=== PATIENT | male | born 1970 | race Caucasian/White ===

== ENCOUNTER 2017-03-08 07:53 | Inpatient (IN) | payer OTHER ==
[2017-03-08] VITALS (16 sets, daily range): BP systolic 106–131; BP diastolic 66–81
[~2017-03-08] VITALS: Ht 172.7 cm; Wt 103.0 kg
[~2017-03-08 07:53] MED LIST: FLO0.4C PO; HYDR-569 PO; ONDA4TAB6 PO
[2017-03-08 08:22] LABS: BASOPHILS % (AUTO) 0 % (0-1); EOSINOPHILS # (AUTO) 0.2 X10'3 (0-0.9); EOSINOPHILS % (AUTO) 1.5 % (0-6); HEMATOCRIT 46.1 % (42.0-52.0); HEMOGLOBIN 15.7 g/dl (14.0-17.9); LYMPHOCYTES # (AUTO) 0.7 X10'3 (1.1-4.8); LYMPHOCYTES % (AUTO) 4.7 % (21-51); MEAN CORPUSCULAR HEMOGLOBIN 28.5 PG (27.0-31.0); MEAN CORPUSCULAR VOLUME 83.8 FL (78-98); MONOCYTES # (AUTO) 0.3 X10'3 (0-0.9); MONOCYTES % (AUTO) 2.2 % (2-12); NEUTROPHILS # (AUTO) 12.7 X10'3 (1.8-7.7); NEUTROPHILS % (AUTO) 91.6 % (42-75); PLATELET COUNT 145 X10'3 (140-440); WHITE BLOOD COUNT 13.9 X10'3 (4.5-11.0)
[2017-03-08 08:30] LABS: INR 1.2 INR
[2017-03-08] MEDS ORDERED: normal saline 1000ML IV soln IVB ONE (08:35)
[2017-03-08] MEDS ORDERED: HYDROmorphone 1 mg/ml syringe IV ONE ×2 (08:35→10:45)
[2017-03-08] MEDS ORDERED: ondansetron/PF 4mg/2ml inj IV ONE (08:35)
[2017-03-08 08:37] LABS: ALANINE AMINOTRANSFERASE 53 U/L (12-78); ALBUMIN 4.6 G/DL (3.4-5.0); ALBUMIN/GLOBULIN RATIO 1.4 (1.1-1.5); ALKALINE PHOSPHATASE 72 IU/L (46-116); AMYLASE 47 U/L (25-115); ANION GAP 12 (8-16); ASPARTATE AMINO TRANSFERASE 20 U/L (10-37); BILIRUBIN,TOTAL 1.2 MG/DL (0.1-1.0); BLOOD UREA NITROGEN 13 MG/DL (7-18); BUN/CREATININE RATIO 9.3 (5.4-32.0); CALCIUM 8.8 MG/DL (8.5-10.1); CHLORIDE 102 MMOL/L (99-107); GLUCOSE 180 MG/DL (70-104); LIPASE 141 U/L (73-393); POTASSIUM 3.7 MMOL/L (3.5-5.1); SODIUM 140 MMOL/L (135-145); TOTAL PROTEIN 7.8 G/DL (6.4-8.2); eGFR 55 ML/MIN
[2017-03-08] MEDS ORDERED: HYDROmorphone inj. 0.5 MG/0.5 ML DISP.SYRIN ONE ×2 (09:07→10:58)
[2017-03-08 10:49] LABS: CLARITY,URINE CLEAR (Clear); GLUCOSE, URINE NEGATIVE (Neg); KETONES,URINE 40 mg/dl (Neg); LEUKOCYTE ESTERASE ,URINE NEGATIVE (Neg); NITRITES, URINE NEGATIVE (Neg); OCCULT BLOOD,URINE SMALL (Neg); PROTEIN,URINE 30 mg/dl (Neg)
[2017-03-08] MEDS ORDERED: cefazolin 1gm/NS 100mL 100 ML IV ONE (10:50)
[2017-03-08 10:51] LABS: UA COLLECTION TYPE CLN CATCH MIDSTREAM
[2017-03-08 10:52] LABS: COLOR,URINE Dark Yellow (Yellow)
[2017-03-08 11:09] LABS: BACTERIA,URINE NONE SEEN /HPF (Neg); SQUAMOUS EPITHELIAL CELL,UR FEW /LPF (FEW); WBC,URINE 0-4 /HPF (0-4)
[2017-03-08 11:10] LABS: MUCUS STRANDS MANY /LPF (Neg)
[2017-03-08] MEDS ORDERED: ondansetron/PF 4mg/2ml inj IV PRN ×3 (13:05→16:35)
[2017-03-08] MEDS: sodium chloride 0.45% 1,000 ML IV SCH (13:14)
[2017-03-08] MEDS: morphine 2 MG/ML inj. syringe IV PRN (13:30)
[2017-03-08] MEDS ORDERED: BUPIVAcaine/PF 2.5 mg/ml (0.25%) 30ml vial ONE (15:24)
[2017-03-08] MEDS ORDERED: midazolam 2 mg/2 ml injection ONE (15:28)
[2017-03-08] MEDS ORDERED: fentaNYL/PF 50MCG/1 ML 2ML syringe ONE (15:28)
[2017-03-08 15:32] LABS: HEMOGLOBIN A1C 5.5 % (4.5-6.2)
[2017-03-08] MEDS ORDERED: neostigmine methylsulfate 1 MG/ML 10ml vial ONE (15:45)
[2017-03-08] MEDS ORDERED: sevoflurane 250ml liquid IH ONE (15:45)
[2017-03-08] MEDS ORDERED: hydrALAZINE 20mg/ml inj. IV PRN (16:15)
[2017-03-08] MEDS ORDERED: labetalol 20mg/4ml (5mg/ml) syringe IV PRN (16:15)
[2017-03-08] MEDS ORDERED: meperidine/PF 25mg/ml syringe IV ONE (16:15)
[2017-03-08] MEDS ORDERED: ringers solution, lacted 1,000 ML IV ONE (16:15)
[2017-03-08] MEDS ORDERED: morphine 2 MG/ML inj. syringe IV PRN ×2 (16:15)
[2017-03-08] MEDS ORDERED: meperidine/PF 25mg/ml syringe IV PRN ×2 (16:15)
[2017-03-08] MEDS ORDERED: LIDOcaine 1%/PF (10mg/ml) 5ml vial ONE (16:19)
[2017-03-08] MEDS ORDERED: propofol inj 20 ML IV ONE (16:19)
[2017-03-08] MEDS ORDERED: rocuronium 10mg/ml inj IV ONE (16:19)
[2017-03-08] MEDS ORDERED: dexamethasone sod phosphate 4mg/ml inj. ONE (16:19)
[2017-03-08] MEDS ORDERED: ondansetron/PF 4mg/2ml inj ONE (16:19)
[2017-03-08] MEDS ORDERED: glycopyrrolate 0.2mg/ml inj ONE (16:20)
[2017-03-08] MEDS: HYDROmorphone inj. 0.5 MG/0.5 ML DISP.SYRIN IV PRN (17:48)
[2017-03-08] MEDS: lactobacillus rhamnosus 10,000 MMU CELLS/CAPSULE PO SCH (18:35)
[2017-03-08] MEDS ORDERED: NO HOME MEDS (18:46)
[2017-03-08] MEDS: piperacillin/tazo 3.375gm/50ml 50 ML IV SCH (18:49)
[2017-03-08] MEDS ORDERED: piperacillin/tazo 3.375gm/50ml 50 ML IV SCH (20:00)
[2017-03-09] VITALS: BP 128/80
[2017-03-09] MEDS: piperacillin/tazo 3.375gm/50ml 50 ML IV SCH ×3 (00:12→16:33)
[2017-03-09] MEDS: HYDROmorphone inj. 0.5 MG/0.5 ML DISP.SYRIN IV PRN (01:26)
[2017-03-09] MEDS: sodium chloride 0.45% 1,000 ML IV SCH ×2 (01:30→14:48)
[2017-03-09 05:20] LABS: BASOPHILS % (AUTO) 0 % (0-1); EOSINOPHILS # (AUTO) 0.1 X10'3 (0-0.9); HEMATOCRIT 38.3 % (42.0-52.0); HEMOGLOBIN 13.5 g/dl (14.0-17.9); LYMPHOCYTES # (AUTO) 0.6 X10'3 (1.1-4.8); LYMPHOCYTES % (AUTO) 4.9 % (21-51); MEAN CORPUSCULAR HEMOGLOBIN 29.3 PG (27.0-31.0); MEAN CORPUSCULAR HGB CONC 35.3 % (33.0-36.5); MEAN CORPUSCULAR VOLUME 82.9 FL (78-98); MEAN PLATELET VOLUME 8.5 FL (7.4-10.4); MONOCYTES # (AUTO) 0.8 X10'3 (0-0.9); MONOCYTES % (AUTO) 6.5 % (2-12); NEUTROPHILS # (AUTO) 10.4 X10'3 (1.8-7.7); NEUTROPHILS % (AUTO) 87.6 % (42-75); PLATELET COUNT 138 X10'3 (140-440); RED BLOOD COUNT 4.62 X10'6 (4.70-6.10); RED CELL DISTRIBUTION WIDTH 13.8 % (11.5-14.5); WHITE BLOOD COUNT 11.9 X10'3 (4.5-11.0)
[2017-03-09 05:53] LABS: ALANINE AMINOTRANSFERASE 49 U/L (12-78); ALBUMIN 3.3 G/DL (3.4-5.0); ALKALINE PHOSPHATASE 55 IU/L (46-116); ANION GAP 9 (8-16); ASPARTATE AMINO TRANSFERASE 21 U/L (10-37); BLOOD UREA NITROGEN 16 MG/DL (7-18); BUN/CREATININE RATIO 13.3 (5.4-32.0); CALCIUM 8.4 MG/DL (8.5-10.1); CHLORIDE 105 MMOL/L (99-107); GLUCOSE 131 MG/DL (70-104); POTASSIUM 4.1 MMOL/L (3.5-5.1); SODIUM 140 MMOL/L (135-145); TOTAL PROTEIN 6.5 G/DL (6.4-8.2); eGFR 66 ML/MIN
[2017-03-09] MEDS: HYDROcodone/acetaminophen 10/325mg tab PO PRN ×2 (06:34→16:33)
[2017-03-09 07:53] VITALS: BP 136/67
[2017-03-09] MEDS: lactobacillus rhamnosus 10,000 MMU CELLS/CAPSULE PO SCH ×2 (07:56→17:02)
[2017-03-09 11:52] VITALS: BP 121/75
[2017-03-09] MEDS: morphine 2 MG/ML inj. syringe IV PRN (14:42)
[2017-03-09 19:30] VITALS: BP 124/77
[2017-03-09] MEDS: diatr meglu/diatrizoate 30ml oral sol.-(3 dose) bottle PO SCH (21:01)
[2017-03-09 23:30] VITALS: BP 138/74
[2017-03-10] MEDS: piperacillin/tazo 3.375gm/50ml 50 ML IV SCH ×2 (00:13→07:00)
[2017-03-10] MEDS: HYDROcodone/acetaminophen 10/325mg tab PO PRN ×2 (00:18→13:31)
[2017-03-10] MEDS: sodium chloride 0.45% 1,000 ML IV SCH ×2 (05:01→06:58)
[2017-03-10 05:09] LABS: BASOPHILS % (AUTO) 0.3 % (0-1); EOSINOPHILS # (AUTO) 0.2 X10'3 (0-0.9); EOSINOPHILS % (AUTO) 2.8 % (0-6); HEMATOCRIT 36.9 % (42.0-52.0); HEMOGLOBIN 12.6 g/dl (14.0-17.9); LYMPHOCYTES % (AUTO) 23.3 % (21-51); MEAN CORPUSCULAR HEMOGLOBIN 29.1 PG (27.0-31.0); MEAN CORPUSCULAR HGB CONC 34.1 % (33.0-36.5); MEAN CORPUSCULAR VOLUME 85.2 FL (78-98); MEAN PLATELET VOLUME 8.9 FL (7.4-10.4); MONOCYTES # (AUTO) 1.1 X10'3 (0-0.9); MONOCYTES % (AUTO) 13.3 % (2-12); NEUTROPHILS # (AUTO) 5.2 X10'3 (1.8-7.7); NEUTROPHILS % (AUTO) 60.3 % (42-75); PLATELET COUNT 131 X10'3 (140-440); RED BLOOD COUNT 4.33 X10'6 (4.70-6.10); RED CELL DISTRIBUTION WIDTH 13.9 % (11.5-14.5); WHITE BLOOD COUNT 8.6 X10'3 (4.5-11.0)
[2017-03-10 05:25] LABS: ALANINE AMINOTRANSFERASE 42 U/L (12-78); ALKALINE PHOSPHATASE 49 IU/L (46-116); ANION GAP 6 (8-16); ASPARTATE AMINO TRANSFERASE 18 U/L (10-37); BILIRUBIN,TOTAL 0.4 MG/DL (0.1-1.0); BLOOD UREA NITROGEN 17 MG/DL (7-18); BUN/CREATININE RATIO 14.2 (5.4-32.0); CALCIUM 8.2 MG/DL (8.5-10.1); CHLORIDE 109 MMOL/L (99-107); GLUCOSE 116 MG/DL (70-104); POTASSIUM 3.9 MMOL/L (3.5-5.1); SODIUM 143 MMOL/L (135-145); TOTAL CARBON DIOXIDE 27.9 MMOL/L (24-32); TOTAL PROTEIN 5.9 G/DL (6.4-8.2); eGFR 66 ML/MIN
[2017-03-10] MEDS: lactobacillus rhamnosus 10,000 MMU CELLS/CAPSULE PO SCH (06:54)
[2017-03-10] MEDS: diatr meglu/diatrizoate 30ml oral sol.-(3 dose) bottle PO SCH ×2 (06:57→09:44)
[2017-03-10 07:32] VITALS: BP 129/71
[2017-03-10] MEDS ORDERED: iohexol 300mg/ml 100ml inj. ONE (09:08)
[2017-03-10 11:30] VITALS: BP 143/90
[2017-03-10] MEDS ORDERED: HYDR-565 PO (15:11)
== END 2017-03-10 16:07 | disposition home or self-care (01) | DRG 854 ==
LOC: ER 07:53 → ED HOLD 13:01 → PACU 15:42 → SUR 3N 17:40
PROVIDERS: ADMIT Internal Medicine; ATTEND Family Medicine
PROC: 0DTJ4ZZ Resection of Appendix, Percutaneous Endoscopic Approach (ICD-10-PCS; principal; 2017-03-08 15:40)
PROC: BW211ZZ Computerized Tomography (CT Scan) of Abdomen and Pelvis using Low Osmolar Contrast (ICD-10-PCS; 2017-03-10)
DX: A41.9 Sepsis, unspecified organism (principal); K35.80 Unspecified acute appendicitis; N17.9 Acute kidney failure, unspecified; K76.0 Fatty (change of) liver, not elsewhere classified; E86.0 Dehydration; N28.89 Other specified disorders of kidney and ureter; R73.9 Hyperglycemia, unspecified; Z79.899 Other long term (current) drug therapy; Z87.442 Personal history of urinary calculi
CPT/HCPCS: 36415; 71045; 74176; 74177; 80053; 81001; 82150; 83036; 83605; 83690; 85025; 85610; 87040; 87070; 93005; 96361; 96365; 96375; 96376; 99285; A4315; A6212; A6251; A7000; J0690; J1100; J1170; J2001; J2250; J2270; J2405; J2543; J2704; J2710; J3010; J3490; J7030; J7120; Q9963; Q9967

== ENCOUNTER 2018-02-22 07:43 | Day surgery (SDC) | payer OTHER ==
[2018-02-22] VITALS (16 sets, daily range): BP systolic 100–143; BP diastolic 63–91
[~2018-02-22] VITALS: Ht 172.7 cm; Wt 104.2 kg
[~2018-02-22 07:43] MED LIST changes: -FLO0.4C PO; -HYDR-569 PO; +NO HOME MEDS; -ONDA4TAB6 PO; +ROPIVAcaine 0.5% (5mg/ml) 30ml vial ONE; +acetaminophen 325mg tablet PO ONE; +ceFAZolin 1000mg inj ONE; +cefazolin/dext.iso 2gm/100 ML IV ONE; +famotidine 20mg tablet PO ONE; +gabapentin 300mg capsule PO ONE; +metoclopramide 5 mg/ml inj IV ONE; +oxyCODONE SR 10mg (sust. release) tab -2 tabs (20mg) PO ONE; +ringers solution, lacted 1,000 ML IV SCH; +tranexamic acid inj. 1,000 MG in normal saline 100 ML IV ONE; +vancomycin inj 1,500 MG in normal saline 300ml IV soln IV ONE
[2018-02-22 08:58] LABS: BASOPHILS # (AUTO) 0.1 X10'3 (0-0.2); EOSINOPHILS # (AUTO) 0.1 X10'3 (0-0.9); MONOCYTES # (AUTO) 0.6 X10'3 (0-0.9)
[2018-02-22 09:01] LABS: BASOPHILS % (AUTO) 0.8 % (0-1); EOSINOPHILS % (AUTO) 1.7 % (0-6); HEMATOCRIT 46.8 % (42.0-52.0); HEMOGLOBIN 15.2 g/dl (14.0-17.9); LYMPHOCYTES # (AUTO) 2.1 X10'3 (1.1-4.8); LYMPHOCYTES % (AUTO) 27.6 % (21-51); MEAN CORPUSCULAR HEMOGLOBIN 27.8 PG (27.0-31.0); MEAN CORPUSCULAR HGB CONC 32.6 % (33.0-36.5); MEAN CORPUSCULAR VOLUME 85.4 FL (78-98); MEAN PLATELET VOLUME 8.8 FL (7.4-10.4); MONOCYTES % (AUTO) 8.4 % (2-12); NEUTROPHILS # (AUTO) 4.6 X10'3 (1.8-7.7); NEUTROPHILS % (AUTO) 61.5 % (42-75); PLATELET COUNT 169 X10'3 (140-440); RED BLOOD COUNT 5.47 X10'6 (4.70-6.10); RED CELL DISTRIBUTION WIDTH 12.9 % (11.5-14.5); WHITE BLOOD COUNT 7.5 X10'3 (4.5-11.0)
[2018-02-22 09:17] LABS: ALANINE AMINOTRANSFERASE 87 U/L (12-78); ALBUMIN 3.8 G/DL (3.4-5.0); ALBUMIN/GLOBULIN RATIO 1.2 (1.1-1.5); ALKALINE PHOSPHATASE 81 IU/L (46-116); ANION GAP 14 (8-16); ASPARTATE AMINO TRANSFERASE 29 U/L (10-37); BILIRUBIN,TOTAL 0.4 MG/DL (0.1-1.0); BLOOD UREA NITROGEN 16 MG/DL (7-18); BUN/CREATININE RATIO 10.7 (5.4-32.0); CALCIUM 8.4 MG/DL (8.5-10.1); CHLORIDE 107 MMOL/L (99-107); GLUCOSE 110 MG/DL (70-104); POTASSIUM 3.9 MMOL/L (3.5-5.1); SODIUM 142 MMOL/L (135-145); TOTAL CARBON DIOXIDE 21.2 MMOL/L (24-32); TOTAL PROTEIN 7.1 G/DL (6.4-8.2); eGFR 51 ML/MIN
[2018-02-22] MEDS ORDERED: sevoflurane 250ml liquid IH ONE (09:20)
[2018-02-22] MEDS ORDERED: LIDOcaine 1%/PF 5ML 10 MG/ML VIAL ONE (09:20)
[2018-02-22] MEDS ORDERED: MIDAZolam 5mg/5ml vial ONE (09:32)
[2018-02-22] MEDS ORDERED: fentaNYL /PF 50mcg/ml 5ml ampule ONE (09:32)
[2018-02-22] MEDS ORDERED: cloNIDine hcl/PF 100mcg/ml inj ONE (09:34)
[2018-02-22] MEDS ORDERED: propofol inj 20 ML IV ONE ×2 (09:37→10:24)
[2018-02-22] MEDS ORDERED: rocuronium 10mg/ml inj IV ONE (10:24)
[2018-02-22] MEDS ORDERED: dexamethasone sod phosphate 4mg/ml inj. ONE (10:24)
[2018-02-22] MEDS ORDERED: ringers solution, lacted 1,000 ML IV SCH (10:47)
[2018-02-22] MEDS ORDERED: proCHLORperazine 10 MG/2 ml inj IV PRN (10:50)
[2018-02-22] MEDS ORDERED: morphine 4 MG/ML inj SYRINge IV PRN ×2 (10:50)
[2018-02-22] MEDS ORDERED: ondansetron/PF 4mg/2ml inj IV PRN (10:50)
[2018-02-22] MEDS ORDERED: meperidine/PF 25mg/ml syringe IV PRN ×3 (10:50)
--- NOTE | 2018-02-22 11:57 | NUR ---
Received from OR via [facility], accompanied by Anesthesiologist SAVANA and report given by Anesthesiolgist. CLARA BRACE TO LEFT KNEE , + DORSALIS PEDIS. DENIES PAIN. 10L MASK ON WITH 98% SATURATIONS. 20G PIV IN LEFT HAND RUNNING LR AT 100. VSS Addendum: 02/22/18 at 1221 by Nicholas Cruz RN, RN Amended: Links added.
--- NOTE | 2018-02-22 13:57 | NUR ---
ALL DC INSTRUCTIONS COVERED, INCLUDING USE OF INCENTIVE SPIROMETER. DENIES PAIN. GIVEN CRUTCHES. SIZED AND PATIENT INSTRUCTED TO USE ANY TIME HE GETS UP BECAUSE OF NERVE BLOCK TO LEFT LE. PATIENT AGREES TO COMPLY. PRESENT FOR THIS DISCUSSION WELL. DRESSED. TAKEN OUT VIA WHEELCHAIR TO PERSONAL VEHICLE. ALL QUESTIONS ANSWERED. Addendum: 02/22/18 at 1424 by Nicholas Cruz RN, RN Amended: Links added.
== END 2018-02-22 13:57 | disposition home or self-care (01) ==
LOC: PAS 07:43
PROVIDERS: ATTEND Orthopaedic Surgery
DX: S83.512A Sprain of anterior cruciate ligament of left knee, initial encounter (principal); S83.282A Other tear of lateral meniscus, current injury, left knee, initial encounter; M25.362 Other instability, left knee; T84.84XA Pain due to internal orthopedic prosthetic devices, implants and grafts, initial encounter; M17.12 Unilateral primary osteoarthritis, left knee; E66.9 Obesity, unspecified; R94.31 Abnormal electrocardiogram [ECG] [EKG]; Z90.5 Acquired absence of kidney; Z90.49 Acquired absence of other specified parts of digestive tract; Z68.35 Body mass index [BMI] 35.0-35.9, adult; Z98.890 Other specified postprocedural states; X58.XXXA Exposure to other specified factors, initial encounter; Y93.89 Activity, other specified; Y92.89 Other specified places as the place of occurrence of the external cause; Y99.8 Other external cause status
CPT/HCPCS: 20680; 29881; 29888; 36415; 80053; 85025; 93005; A6449; C1713; C1776; J0690; J0735; J1100; J2001; J2250; J2704; J2765; J3010; J3370; J7120; L1832; A7000; J2795; J7030

== ENCOUNTER 2021-05-24 17:56 | Emergency (ER) | payer OTHER ==
[~2021-05-24] VITALS: Ht 172.7 cm; Wt 109.0 kg
[~2021-05-24 17:56] MED LIST changes: -ROPIVAcaine 0.5% (5mg/ml) 30ml vial ONE; -acetaminophen 325mg tablet PO ONE; -ceFAZolin 1000mg inj ONE; -cefazolin/dext.iso 2gm/100 ML IV ONE; -famotidine 20mg tablet PO ONE; -gabapentin 300mg capsule PO ONE; -metoclopramide 5 mg/ml inj IV ONE; -oxyCODONE SR 10mg (sust. release) tab -2 tabs (20mg) PO ONE; -ringers solution, lacted 1,000 ML IV SCH; -tranexamic acid inj. 1,000 MG in normal saline 100 ML IV ONE; -vancomycin inj 1,500 MG in normal saline 300ml IV soln IV ONE
[2021-05-24 18:32] VITALS: BP 141/96
== END 2021-05-24 21:32 | disposition home or self-care (01) ==
LOC: ER 17:57
DX: S86.812A Strain of other muscle(s) and tendon(s) at lower leg level, left leg, initial encounter (principal); V49.9XXA Car occupant (driver) (passenger) injured in unspecified traffic accident, initial encounter; Y93.89 Activity, other specified; Y92.89 Other specified places as the place of occurrence of the external cause; Y99.8 Other external cause status
CPT/HCPCS: 73564; 93971; 99284